=== PATIENT | male | born 1950 | race Caucasian/White ===

== ENCOUNTER 2025-09-07 14:55 | Emergency (ER) | payer MEDICARE, SELFPAY ==
--- NOTE | 2025-09-07 15:01 | HMH.EDGENADL ---
Discharge Plan Disposition Chief Complaint: PAIN Prescriptions Prescriptions: No Action metformin 500 mg Tablet 500 mg PO BID hydrochlorothiazide 50 mg Tablet 50 mg PO DAILY atorvastatin 40 mg Tablet 40 mg PO HS metoprolol succinate 200 mg Tablet Extended Release 24 Hr 200 mg PO BID nifedipine 30 mg Tablet Extended Release 30 mg PO DAILY levothyroxine 150 mcg Tablet 150 mcg PO DAILY lisinopril 40 mg Tablet 40 mg PO DAILY aspirin 81 mg Capsule 81 mg PO DAILY Referrals Follow up/Referrals: Kait Meyer APRN [Primary Care Provider, Medical] - See instructions Print Language Print Language: Irish Discharge ED Provider: Sharda Patterson General Adult HPI General Chief complaint: PAIN Stated complaint: inj. left knee Time Seen by Provider: 09/07/25 15:00 History of Present Illness HPI narrative: Patient is a 75-year-old with hypertension diabetes presents emergency department with left knee pain. Patient was moving groceries when he twisted and felt like his left knee gave out. Patient did not hit head or lose consciousness or fall during the event. Patient lowered himself to his seat in the car and was unable to bear weight on the left knee due to left knee laxity. Denies any injury to the knee prior. Pain is mild to moderate Related Data Home Medications ?Medication ?Instructions ?Recorded ?Confirmed aspirin 81 mg capsule 81 mg PO DAILY 09/07/25 09/07/25 atorvastatin 40 mg tablet 40 mg PO HS 09/07/25 09/07/25 hydrochlorothiazide 50 mg tablet 50 mg PO DAILY 09/07/25 09/07/25 levothyroxine 150 mcg tablet 150 mcg PO DAILY 09/07/25 09/07/25 lisinopril 40 mg tablet 40 mg PO DAILY 09/07/25 09/07/25 metformin 500 mg tablet 500 mg PO BID 09/07/25 09/07/25 metoprolol succinate 200 mg 200 mg PO BID 09/07/25 09/07/25 tablet,extended release 24 hr nifedipine 30 mg tablet,extended 30 mg PO DAILY 09/07/25 09/07/25 release Allergies Allergy/AdvReac Type Severity Reaction Status Date / Time No Known Allergies Allergy Verified 09/07/25 15:10 [facility] Disclaimer: The information contained in this section may have been updated after the patient was seen, as this information can be updated by other users. Social History Smoking Status: Never smoker alcohol intake: never current occupational status: retired Travel in the last 8 weeks?: Inside the [place] ROS Obtained: Yes All systems reviewed & no additional complaints except as documented Physical Exam General General appearance: alert and in no apparent distress Head Head exam: atraumatic ENT ENT exam: Present normal exam Respiratory Respiratory exam: Absent respiratory distress Cardiovascular Cardiovascular exam: Present regular rate and normal rhythm Abdominal Exam Abdominal exam: Present soft; Absent tenderness Extremities Exam Extremities exam: Present normal inspection, full ROM, tenderness (mild tenderness to the inferolateral border of patella) and other (no laxity anterior or posterior drawer ); Absent joint swelling or calf tenderness Neurological Exam Neurological exam: Present alert and oriented X3 Skin Skin exam: Present warm and dry Medical Decision Making Medical Records Screening: Per USPSTF and CDC recommendations, given the prevalence of disease in our region, it is our hospital?s policy to screen for HIV and viral Hepatitis for all patients aged 18 and over and those with ongoing risk factors. Shlomo Inquiry Pt receiving controlled substance: No Vital Signs: 09/07/25 15:02 09/07/25 15:05 09/07/25 16:21 Temperature 98.9 F Temperature Source Oral Pulse Rate 72 Pulse Rate [Right] 71 Respiratory Rate 21 Blood Pressure 154/79 H 148/67 H Blood Pressure [Right Arm] 154/79 H Blood Pressure Mean [Right Arm] 104 Blood Pressure Source [Right Arm] Automatic Cuff Blood Pressure Position [Right Arm] Sitting 02 Sat by Pulse Oximetry 83 L 96 96 Oxygen Delivery Method Room Air Room Air 09/07/25 16:31 Temperature Temperature Source Pulse Rate 66 Pulse Rate [Right] Respiratory Rate Blood Pressure 135/67 Blood Pressure [Right Arm] Blood Pressure Mean [Right Arm] Blood Pressure Source [Right Arm] Blood Pressure Position [Right Arm] 02 Sat by Pulse Oximetry 95 Oxygen Delivery Method Room Air Orders (Tests/Meds): ORDERS Category Date Time Status Femur XR left 2 views [XR femur LT 2V] Stat Exams 09/07/25 15:22 Completed Knee XR left 3 views [XR knee LT 3V] Stat Exams 09/07/25 15:22 Completed POCUS Point of Care (ER Only) Stat Exams 09/07/25 15:14 Completed Tibia/fibula XR left 2 views [XR tibia fibula LT 2V] Exams 09/07/25 15:22 Completed Stat Medical Decision Narrative: In summary, this 75-year-old male presents to the emergency department today with traumatic brain. On initial evaluation patient is stable saturating appropriately on room air afebrile no acute distress. Differential diagnosis includes but is not limited to acute fracture dislocation Richard's cyst DV ligamentous injury. Based on these concerns, I ordered x-rays of the left femur knee and tib-fib. Offered patient multimodal pain control however patient declined at this time. XR personally interpreted demonstrates prior fractures of the distal tib-fib and femur correlating with patient's history patient does not have any pain. I have high suspicion for ligamentous injury of the left knee. Patient was placed in a knee immobilizer for outpatient follow-up with PCP. Weightbearing as tolerated. Patient ambulatory with a walker in the emergency department similar to what he has at home. Procedures Limited Ultrasound Indication:: left knee pain Views:: Limited DVT ultrasound Indication: Limited compression ultrasonography of the left lower extremity was performed to evaluate for non-compressibility of the deep veins in the patient. The ultrasound was performed with the following indications, as noted in the H&P: left leg pain Identified structures: left common femoral vein, femoral vein, popliteal vein were examined. Findings: Lower Extremity: Left CFV: Good compressibility Left FV Good compressibility Left Popliteal vein: Good compressibility Impression: Normal, no bakers cyst identified Images saved to permanent archive The study was technically adequate CPT: 46566-66-[id number] 21804-90 (complete bilateral study) This study was performed by me, and I personally interpreted all images/videos. Based on my clinical judgement, these images were [adequate/inadequate] and [did/did not] necessitate further imaging. Critical Care Critical Care Time Critical Care Time: No
[2025-09-07 15:02] VITALS: BP 154/79; O2SAT 83
[2025-09-07 15:05] VITALS: BP 154/79; PULSE 71; RESP 21; TEMP 37.2; O2SAT 96; BMI 35.2
--- NOTE | 2025-09-07 15:22 | XR_ITS ---
PROCEDURE INFORMATION: Exam: XR Left Knee Exam date and time: 09/07/2025 3:31 PM Age: 75 years old Clinical indication: Injury or trauma; Other: Twisted; Blunt trauma; Knee; Left; Additional info: Traumatic knee pain TECHNIQUE: Imaging protocol: Radiologic exam of the left knee. Views: 3 views. COMPARISON: CR XR KNEE LT 3V 09/07/2025 3:31 PM FINDINGS: Bones/joints: Moderate Tricompartmental joint space narrowing and osteophyte formation consistent with degenerative changes. There is no evidence of acute fracture.There is no evidence of malalignment or dislocation. Soft tissues: Normal. IMPRESSION: 1. Moderate Tricompartmental joint space narrowing and osteophyte formation consistent with degenerative changes. 2. There is no evidence of acute fracture.There is no evidence of malalignment or dislocation.
--- NOTE | 2025-09-07 15:22 | XR_ITS ---
PROCEDURE INFORMATION: Exam: XR Left Tibia and Fibula Exam date and time: 09/07/2025 3:30 PM Age: 75 years old Clinical indication: Injury or trauma; Other: Twisted; Blunt trauma; Lower leg; Left; Additional info: Traumatic knee pain TECHNIQUE: Imaging protocol: Radiologic exam of the left tibia and fibula. Views: 2 views. COMPARISON: CR XR TIBIA FIBULA LT 2V 09/07/2025 3:30 PM FINDINGS: Bones/joints: Healed distal tibial fracture. Healed distal fibular fractures. Unhealed avulsion fracture off the lateral malleolus. There is no evidence of acute fracture.There is no evidence of malalignment or dislocation. Soft tissues: Calcific densities in the plantar aspect of the foot IMPRESSION: 1. Healed distal tibial fracture. Healed distal fibular fractures. 2. Unhealed avulsion fracture off the lateral malleolus. 3. There is no evidence of acute fracture.There is no evidence of malalignment or dislocation.
--- NOTE | 2025-09-07 15:22 | XR_ITS ---
PROCEDURE INFORMATION: Exam: XR Left Femur Exam date and time: 09/07/2025 3:33 PM Age: 75 years old Clinical indication: Injury or trauma; Other: Twisted; Blunt trauma; Thigh or upper leg; Left; Additional info: Traumatic knee pain TECHNIQUE: Imaging protocol: Radiologic exam of the left femur. Views: 2 views. COMPARISON: CR Knee L 09/07/2025 3:31 PM FINDINGS: Bones/joints: Unusual healing of a midshaft femur fracture with persistent elongated lucency and sclerosis . This could represent chronic osteomyelitis in the appropriate clinical setting.. No acute fracture. Well corticated 2.3 cm ossific fragment superior to the left greater trochanter may represent old avulsion fracture . Soft tissues: Unremarkable. IMPRESSION: Unusual healing of a midshaft femur fracture with persistent elongated lucency and sclerosis . This could represent chronic osteomyelitis in the appropriate clinical setting..
--- OUTSIDE RECORDS SUMMARY | 2025-09-07 15:24 | XMS_ITS | Clinical Summary ---
Author Organization [facility] Address [address] [place] [address] Care Team Providers Care Passenger Train Braker Name Role Phone Dilip Naranjo MD Primary Care Provider [phone] Allergies No known active allergies Medications lisinopril (PRINIVIL,ZESTRI L) 40 MG tablet Take 40 mg by mouth Daily. 08/31/2020 Active hydroCHLOROthiaz yumiko (HYDRODIURIL) 50 MG tablet Take 50 mg by mouth Daily. 10/26/2020 Active metoprolol succinate XL (TOPROL-XL) 200 MG 24 hr tablet Take 200 mg by mouth Daily. 09/13/2020 Active Euthyrox 175 MCG tablet Take 175 mcg by mouth Daily. 09/16/2020 Active gabapentin (NEURONTIN) 100 MG capsule Take 100 mg by mouth every night at bedtime. 11/02/2020 Active atorvastatin (LIPITOR) 40 MG tablet Take 40 mg by mouth every night at bedtime. 11/25/2020 Active NIFEdipine CC (ADALAT CC) 30 MG 24 hr tablet Take 30 mg by mouth Daily. 11/25/2020 Active coenzyme Q10 100 MG capsule Take 100 mg by mouth Daily. Active acetaminophen (Tylenol 8 Hour) 650 MG 8 hr tablet Take 650 mg by mouth Every 8 (Eight) Hours As Needed for Mild Pain . Active aspirin 81 MG EC tablet Take 81 mg by mouth Daily. 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 History of DVT (deep vein thrombosis) 02/11/2021 Hypertension 02/11/2021 Hyperlipidemia 02/11/2021 Elevated hemoglobin A1c 02/11/2021 Rotator cuff arthropathy of right shoulder 12/04 Nontraumatic complete tear of right rotator cuff 12/04/2020 Contracture of joint of right shoulder region Family History Medical History Relation Name Comments No Known Problems Father No Known Problems Mother Relation Name Status Comments Father Mother Social History Tobacco Use Types Packs/Day Years Used Date Smoking Tobacco: Former Smokeless Tobacco: Never Alcohol Use Standard Drinks/Week Comments Yes 2 (1 standard drink = 0.6 oz pur e alcohol) Abuse Screen Answer Date Recorded Unsafe at Home or Work/School Not on file Feels Threatened by Someone? Not on file 05/2023 Does Anyone Keep You from Co ntacting Others or Doint Things Outside the Home? Not on file 06/27/2023 Physical Sign of Abuse Present Not on file 1 Housing Stability Answer Date Recorded Current Living Arrangements Not on file 05/2023 Potentially Unsafe Housing Conditions Not on leisa e 06/27/2023 Family and Community Support Answer Nathan e Recorded Help with Day-to-Day Activities Not on file 06/27/2023 Lonely or Isolated Not on file 06/27/2023 Employment Answer Date Recorded Do you want help finding or keeping work or a rebecca b? Not on file 06/27/2023 Disabilities Answer Date Recorded Concentrating, Remembering, or Making Decisions Difficulty Not on file 06/27/2023 Doing Errands Independently Difficulty Not on fi le 06/27/2023 Education Answer Date Recorded Help with school or training? Not on file Preferred Language Not on file 06/27/2023 Sex and Gender Information Value Date Recorded Sex Assigned at Not on file Legal Sex Male 1:09 PM EDT Gender Identity Not on file Sexual Orientation Not on file Last Filed Vital Signs Vital Sign Reading Time Taken Comments Blood Pressure 151/69 08/04/2021 1:17 PM EST Pulse 66 08/04/2021 1:17 PM EST Temperature 37.2 C (99 F) 02/12/2021 3:30 AM EDT Respiratory Rate 16 02/12/2021 3:30 AM EDT Oxygen Saturation 91% 02/12/2021 1:25 PM EDT Inhaled Oxygen Concentration - - Weight 113 kg (250 lb) 08/04/2021 1:17 PM EST Height 177.8 cm (5' 10 ) 08/04/2021 1:17 PM EST Body Mass Index 35.87 08/04/2021 1:17 PM EST Plan of Treatment Health Maintenance Due Date Last Done Comments LIPID PANEL 1950 ZOSTER VACCINE (1 of 2) 02/16/1998 ANNUAL PHYSICAL 12/01/2020 HEPATITIS C SCREENING 12/01/2020 RSV Vaccine - Adults (1 - 1- dose 75+ series) 02/16/2023 INFLUENZA VACCINE 04/19/2025 07/25/2019 COVID-19 Vaccine (1 - 2023- season) 2025 TDAP/TD VACCINES (2 - Td or Tdap) 12/26/2028 019 Pneumococcal Vaccine 50+ Completed 07/25/2019, 04/20 Medical Devices Implanted Type Area Boomboat Operator Device Identifier Shelf Expiration Date Model / Serial / Lot Implant Implant Description:Right leg hardwa re Scrw Aequalis Perform Periph 5x38mm - [id number] Implanted:Qt y: 1 on 02/11/2021 by Jaren Lopez MD at [facility] Implant Right: Shoulder TORNIER [id number] / / N/A Shldr Rev Ascend Flex W/Perform Lat/Aug Baseplt - [id number] Implanted:Qt y: 1 on 02/11/2021 by Jaren Lopez MD at [facility] Implant Right: Shoulder TORNIER CAPSHLDRREVASCEN D [id number] / / Baseplt Shldr Aequalis Ful/Wedge Apr 15d 25mm - [id number] - [id number] Implanted:Qt y: 1 on 02/11/2021 by Jaren Lopez MD at [facility] Implant Right: Shoulder TORNIER [id number] 09/03/2024 [id number] / [id number] / N/A Post Shdlr Aequalis Perform Rev Prss/Fit Sht 7mm - [id number] - [id number] Implanted:Qt y: 1 on 02/11/2021 by Jaren Lopez MD at [facility] Implant Right: Shoulder TORNIER [id number] 05/31/2024 [id number] / [id number] / N/A Glenosphere Shldr Aequalis Perform Std 36mm - [id number] - [id number] Implanted:Qt y: 1 on 02/11/2021 by Jaren Lopez MD at [facility] Implant Right: Shoulder TORNIER [id number] 01/12/2026 [id number] / [id number] / N/A Inst Guide Perform Sz 3to4 36mm Pls0 - [id number] - [id number] Implanted:Qt y: 1 on 02/11/2021 by Jaren Lopez MD at [facility] Implant Right: Shoulder TORNIER [id number] 08/20/2025 [id number] / [id number] / N/A Stem Hum Preform Sz3 Pls - [id number] - [id number] Implanted:Qt y: 1 on 02/11/2021 by Jaren Lopez MD at [facility] Implant Right: Shoulder TORNIER [id number] 11/04/2025 [id number] / [id number] / N/A Scrw Aequalis Perform Periph 5x26mm - [id number] Implanted:Qt y: 1 on 02/11/2021 by Jaren Lopez MD at [facility] Implant Right: Shoulder TORNIER [id number] / / N/A Scrw Aequalis Perform Periph 5x30mm - [id number] Implanted:Qt y: 1 on 02/11/2021 by Jaren Lopez MD at [facility] Implant Right: Shoulder TORNIER [id number] / / N/A Scrw Periph 5x34mm - [id number] Implanted:Qt y: 1 on 02/11/2021 by Jaren Lopez MD at [facility] Implant Right: Shoulder TORNIER [id number] / / N/A Insurance [id number] MED[employer] ADVANTAGE Advance Directives * CPR (Attempt to Resuscitate) (Latest Code Status on File) Date Activated Date Inactivated Comments 02/11/2021 4:48 PM 02/12/2021 3:50 PM Question Answer Comments Code Status (Patient has no pulse and is not breathing): CPR (Attempt to Resuscitate) Medical Interventions (Patie nt has pulse or is breathing): Full Level Of Support Discussed With: Patient Care Teams Passenger Train Braker Relationship Specialty [place] [address] [place] [address] PCP - General Family Medicine 12/01/20
[2025-09-07 16:21] VITALS: BP 148/67; PULSE 72; O2SAT 96
[2025-09-07 16:31] VITALS: BP 135/67; PULSE 66; O2SAT 95
[2025-09-07 17:29] VITALS: BP 151/76; PULSE 66; RESP 18; TEMP 36.9; O2SAT 95
[2025-09-07 17:36] VITALS: BP 138/80; PULSE 70; RESP 18; TEMP 36.7; O2SAT 99
== END 2025-09-07 17:36 | disposition home or self-care (01) ==
PROVIDERS: Emergency Provider Student in an Organized Health Care Education/Training Program; PCP Nurse Practitioner Family
DX: S89.92XA Unspecified injury of left lower leg, initial encounter (principal); W18.39XA Other fall on same level, initial encounter
CPT/HCPCS: 73552; 73562; 73590; 99283